=== PATIENT | female | born 1940 | race Caucasian/White ===

== ENCOUNTER → 2016-10-20 | Outpatient (CLI) | payer MEDICARE, OTHER ==
[2016-10-20 15:27] LABS: BASO % 0 % (0-3); EOS % 0 % (0-3); HEMATOCRIT 39.1 % (36.0-47.0); HEMOGLOBIN 13.4 g/dL (12.0-15.5); LYMPH # 1.1 x10^3/uL (1.0-4.8); LYMPH % 25 % (24-48); MEAN CORPUSCULAR HEMOGLOBIN 34 pg (25-35); MEAN CORPUSCULAR HGB CONC 34 g/dL (31-37); MEAN CORPUSCULAR VOLUME 98 fL (79-100); MONO # 0.3 x10^3/uL (0.0-1.1); MONO % 6 % (0-9); NEUT # 3.1 x10^3uL (1.8-7.7); NEUT % 69 % (31-73); PLATELET COUNT 162 x10^3/uL (140-400); RED BLOOD COUNT 3.98 x10^6/uL (3.50-5.40); RED CELL DISTRIBUTION WIDTH 13.7 % (11.5-14.5); WHITE BLOOD COUNT 4.5 x10^3/uL (4.0-11.0)
[2016-10-20 15:33] LABS: ALBUMIN 3.6 g/dL (3.4-5.0); ALBUMIN/GLOBULIN RATIO 0.9 (1.0-1.7); CALCIUM 9.3 mg/dL (8.5-10.1); CREATININE 1.3 mg/dL (0.6-1.0); GFR 39.7; MAGNESIUM 1.8 mg/dL (1.8-2.4); PHOSPHORUS 3.8 mg/dL (2.6-4.7); POTASSIUM 4.7 mmol/L (3.5-5.1); TOTAL BILIRUBIN 0.8 mg/dL (0.2-1.0); TOTAL PROTEIN 7.6 g/dL (6.4-8.2); URIC ACID 5.4 mg/dL (2.6-6.0)
[2016-10-21 05:10] LABS: UR CREATININE RD 113.9 mg/dL (Not Estab.)
== END | disposition home or self-care (01) ==
LOC: LAB 14:22
PROVIDERS: ATTEND Internal Medicine Nephrology
DX: N18.9 Chronic kidney disease, unspecified (principal); Z68.34 Body mass index [BMI] 34.0-34.9, adult
CPT/HCPCS: 36415; 80053; 82570; 83735; 84100; 84156; 84550; 85027

== ENCOUNTER → 2017-04-23 | Outpatient (CLI) | payer MEDICARE, OTHER ==
[2017-04-23 12:19] LABS: BASO % 0 % (0-3); EOS % 0 % (0-3); HEMOGLOBIN 14.1 g/dL (12.0-15.5); LYMPH % 21 % (24-48); MEAN CORPUSCULAR HEMOGLOBIN 35 pg (25-35); MEAN CORPUSCULAR HGB CONC 35 g/dL (31-37); MEAN CORPUSCULAR VOLUME 98 fL (79-100); MONO # 0.3 x10^3/uL (0.0-1.1); MONO % 7 % (0-9); NEUT # 3.5 x10^3uL (1.8-7.7); NEUT % 72 % (31-73); PLATELET COUNT 213 x10^3/uL (140-400); RED BLOOD COUNT 4.07 x10^6/uL (3.50-5.40); WHITE BLOOD COUNT 4.8 x10^3/uL (4.0-11.0)
[2017-04-23 12:34] LABS: ALBUMIN 3.4 g/dL (3.4-5.0); ALBUMIN/GLOBULIN RATIO 0.8 (1.0-1.7); CALCIUM 9.2 mg/dL (8.5-10.1); CREATININE 1.4 mg/dL (0.6-1.0); GFR 36.5; MAGNESIUM 1.6 mg/dL (1.8-2.4); PHOSPHORUS 3.5 mg/dL (2.6-4.7); POTASSIUM 4.1 mmol/L (3.5-5.1); TOTAL BILIRUBIN 1.4 mg/dL (0.2-1.0); TOTAL PROTEIN 7.5 g/dL (6.4-8.2); URIC ACID 6.8 mg/dL (2.6-6.0)
[2017-04-24 05:12] LABS: CALCIUM PTH 9.2 mg/dL (8.7-10.3); CREATININE PTH 1.21 mg/dL (0.57-1.00); PTH INTACT 60 pg/mL (15-65)
== END | disposition home or self-care (01) ==
LOC: LAB 10:47
PROVIDERS: ATTEND Internal Medicine Nephrology
DX: I12.9 Hypertensive chronic kidney disease with stage 1 through stage 4 chronic kidney disease, or unspecified chronic kidney disease (principal); N18.3 Chronic kidney disease, stage 3 (moderate); E11.22 Type 2 diabetes mellitus with diabetic chronic kidney disease; E11.21 Type 2 diabetes mellitus with diabetic nephropathy; Z68.35 Body mass index [BMI] 35.0-35.9, adult
CPT/HCPCS: 36415; 80053; 83735; 83970; 84100; 84550; 85025

== ENCOUNTER → 2017-08-13 | Outpatient (CLI) | payer OTHER ==
[2017-08-13 13:47] LABS: ALBUMIN 3.2 g/dL (3.4-5.0); CALCIUM 9.3 mg/dL (8.5-10.1); CREATININE 1.2 mg/dL (0.6-1.0); GFR 43.4; MAGNESIUM 1.7 mg/dL (1.8-2.4); PHOSPHORUS 3.6 mg/dL (2.6-4.7); POTASSIUM 4.2 mmol/L (3.5-5.1)
[2017-08-13 13:48] LABS: BASO % 0 % (0-3); EOS % 0 % (0-3); HEMOGLOBIN 13.2 g/dL (12.0-15.5); LYMPH % 24 % (24-48); MEAN CORPUSCULAR HEMOGLOBIN 33 pg (25-35); MEAN CORPUSCULAR HGB CONC 35 g/dL (31-37); MEAN CORPUSCULAR VOLUME 95 fL (79-100); MONO # 0.2 x10^3/uL (0.0-1.1); MONO % 5 % (0-9); NEUT # 2.9 x10^3uL (1.8-7.7); NEUT % 71 % (31-73); PLATELET COUNT 149 x10^3/uL (140-400); RED CELL DISTRIBUTION WIDTH 13.7 % (11.5-14.5); WHITE BLOOD COUNT 4.1 x10^3/uL (4.0-11.0)
[2017-08-14 14:12] LABS: CALCIUM PTH 9.4 mg/dL (8.7-10.3); CREATININE PTH 1.05 mg/dL (0.57-1.00); PTH INTACT 38 pg/mL (15-65)
== END | disposition home or self-care (01) ==
LOC: LAB 10:25
PROVIDERS: ATTEND Nurse Practitioner Family
DX: I12.9 Hypertensive chronic kidney disease with stage 1 through stage 4 chronic kidney disease, or unspecified chronic kidney disease (principal); E11.21 Type 2 diabetes mellitus with diabetic nephropathy; N18.3 Chronic kidney disease, stage 3 (moderate); Z68.35 Body mass index [BMI] 35.0-35.9, adult
CPT/HCPCS: 36415; 80069; 83735; 83970; 85025

== ENCOUNTER 2017-08-27 19:07 | Inpatient (IN) | payer OTHER ==
[~2017-08-27] VITALS: Ht 157.5 cm; Wt 82.6 kg
--- NOTE | 2017-08-27 19:46 | EKG ---
[address] [address] Test Date: 2017-08-27 Test Time: 19:39:05 Pat Name: MATILDE CHRISTENSEN Department: Room: Gender: F Veterinary Physiologist: ASHLEY : 1940 Requested By: Evelyne ROSARIO Order Number: [id number] Reading MD: David Coulter Measurements Intervals [place] Rate: 102 P: 52 WA: 180 QRS: 4 QRSD: 78 T: 26 QT: 392 QTc: 516 Interpretive Statements SINUS TACHYCARDIA Electronically Signed On 09-03-2017 14:47:37 CDT by David Coulter
[2017-08-27 20:00] LABS: BASO % 0 % (0-3); EOS % 0 % (0-3); HEMATOCRIT 37.7 % (36.0-47.0); HEMOGLOBIN 13.2 g/dL (12.0-15.5); LYMPH % 19 % (24-48); MEAN CORPUSCULAR HEMOGLOBIN 33 pg (25-35); MEAN CORPUSCULAR HGB CONC 35 g/dL (31-37); MEAN CORPUSCULAR VOLUME 94 fL (79-100); MONO # 0.2 x10^3/uL (0.0-1.1); MONO % 5 % (0-9); NEUT % 77 % (31-73); PLATELET COUNT 176 x10^3/uL (140-400); RED BLOOD COUNT 4.01 x10^6/uL (3.50-5.40); RED CELL DISTRIBUTION WIDTH 13.4 % (11.5-14.5); WHITE BLOOD COUNT 5.2 x10^3/uL (4.0-11.0)
[2017-08-27 20:16] LABS: ALBUMIN 3.3 g/dL (3.4-5.0); ALBUMIN/GLOBULIN RATIO 0.8 (1.0-1.7); CREATININE 1.1 mg/dL (0.6-1.0); MAGNESIUM 1.7 mg/dL (1.8-2.4); POTASSIUM 3.9 mmol/L (3.5-5.1); TOTAL BILIRUBIN 0.7 mg/dL (0.2-1.0); TOTAL PROTEIN 7.5 g/dL (6.4-8.2)
--- NOTE | 2017-08-27 20:24 | RAD ---
CT scan of the head without contrast August 27, 2017 Clinical History: Fall with head trauma. Altered mental status. Technique: Unenhanced, contiguous, 5 mm axial sections were obtained through the head. One or more of the following individualized dose reduction techniques were utilized for this study: 1. Automated exposure control. 2. Adjustment of the mA and/or kV according to patient size. 3. Use of iterative reconstruction technique. Findings: No previous imaging studies are available for comparison. Images from the study are degraded by patient motion. There is generalized parenchymal atrophy. Areas of decreased attenuation are seen within the periventricular and subcortical white matter of both cerebral hemispheres consistent with areas of small vessel ischemic disease. No acute parenchymal abnormality is seen. No extra-axial fluid collection is noted. No skull fracture is seen. Impression: No acute intracranial abnormality is seen. CT scan of the cervical spine without contrast August 27, 2017 Clinical history: Neck pain post fall. Technique: Unenhanced, contiguous, 0.625 mm axial sections were obtained through the cervical spine. Axial, coronal and sagittal reconstructed images were obtained. One or more of the following individualized dose reduction techniques were utilized for this study: 1. Automated exposure control. 2. Adjustment of the mA and/or kV according to patient size. 3. Use of iterative reconstruction technique. Findings: Sagittal and coronal reconstructed images demonstrate mild lateral curvature of the cervical spine, convex to the right. There is mild straightening of the normal cervical lordosis. Degenerative changes are seen involving the cervical disc spaces consisting of disc space narrowing, vertebral endplate sclerosis and mild to moderate anterior and posterior vertebral body osteophyte formation are seen throughout the cervical disc spaces. No fracture or subluxation cervical vertebrae is seen. Degenerative changes are seen involving the uncovertebral and facet joints throughout the cervical disc spaces. Moderate atherosclerotic calcification is seen in the region of the carotid bifurcations. Impression: No fracture or subluxation of the cervical vertebra is identified. Electronically signed by: Jameson Haines MD (08/27/2017 8:21 PM) [facility]
[2017-08-27] MEDS ORDERED: IV NORMAL SALINE 500ML 500 ML IV ONE (20:45)
[2017-08-27 21:41] LABS: BILIRUBIN,URINE NEG (NEG); CLARITY,URINE CLEAR; COLOR,URINE YELLOW; GLUCOSE,URINE NEG (NEG)
[2017-08-27 21:42] LABS: AMORPHOUS SEDIMENT,UR PRESENT /HPF; BACTERIA,URINE 0 /HPF (0-FEW); NITRITE,URINE NEG (NEG); RBC,URINE RARE /HPF (0-2); SQUAMOUS EPITHELIAL CELL,UR OCC /LPF; UROBILINOGEN,URINE 0.2 mg/dL (0.2 mg/dL); WBC,URINE OCC /HPF (0-4)
[2017-08-27] MEDS ORDERED: MIDAZOLAM HCL PF 5 MG/5 ML VIAL. IV ONE (22:00)
[2017-08-27] MEDS ORDERED: MORPHINE SULFATE 4 MG/ML DISP.SYRIN. ONE (22:03)
[2017-08-27] MEDS: MORPHINE SULFATE 4 MG/ML DISP.SYRIN. IV ONE ×2 (22:04→22:15)
--- NOTE | 2017-08-27 22:59 | PHYS DOC ---
Adult General Chief Complaint Chief Complaint: MECHANICAL FALL HPI HPI Patient is a 75-year-old female who is brought in by her secondary to concerns of increased confusion and agitation. Patient also sustained a fall today. Patient has been able to ambulate after the fall. No recent illnesses, no history of fevers or sick contacts or rashes. No recent changes in medication. Both the patient and are poor historians. History, ROS limited secondary to dementia and clinical condition Review of Systems Review of Systems ROS limited secondary to dementia. Neuro: increased confusion Psych: increased agitation All other systems were reviewed and found to be within normal limits, except as documented in this note. Current Medications Current Medications Current Medications Medications (Trade) Dose Ordered Sig/Leola Start Time Stop Time Status Last Admin Dose Admin Midazolam HCl (Versed) 2 mg 1X ONCE 08/27/17 22:00 08/27/17 22:01 DC 08/27/17 21:50 2 MG Morphine Sulfate (Morphine 4mg Syringe) 4 mg STK-MED ONCE 08/27/17 22:03 08/27/17 22:04 DC Sodium Chloride 500 ml @ 0 mls/hr 1X ONCE 08/27/17 20:45 08/27/17 20:49 DC 08/27/17 20:45 0 MLS/HR Allergies Allergies Allergies Coded Allergies Type Severity Reaction Last Updated Verified No Known Drug Allergies 08/27/17 No Physical Exam Physical Exam Constitutional: Well developed, well nourished, mild distress, non-toxic appearance. [] HENT: Normocephalic, atraumatic, bilateral external ears normal, oropharynx dry , no oral exudates, nose normal. [] Eyes:EOMI, conjunctiva normal, no discharge. [] Neck: Normal range of motion, no tenderness, supple, no stridor. Trachea midline. No LAD, no meningeal signs Cardiovascular: Equal pulses, normal perfusion Lungs & Thorax: Bilateral breath sounds clear to auscultation, no tachypnea Abdomen: Bowel sounds normal, soft, no tenderness, no masses, no pulsatile masses. [] Skin: Warm, dry, no erythema, no rash. [] Back: No tenderness, no CVA tenderness. No midline tenderness to palpation, no step-offs Extremities: No tenderness, no DVT, ROM intact, no edema. [] Neurologic: Alert , normal motor function, no focal deficits noted. [] Psychologic: Anxious, agitated. [] Current Patient Data Lab Results Laboratory Tests Test 08/27/17 19:20 08/27/17 21:09 White Blood Count 5.2 x10^3/uL (4.0-11.0) Red Blood Count 4.01 x10^6/uL (3.50-5.40) Hemoglobin 13.2 g/dL (12.0-15.5) Hematocrit 37.7 % (36.0-47.0) Mean Corpuscular Volume 94 fL (79-100) Mean Corpuscular Hemoglobin 33 pg (25-35) Mean Corpuscular Hemoglobin Concent 35 g/dL (31-37) Red Cell Distribution Width 13.4 % (11.5-14.5) Platelet Count 176 x10^3/uL (140-400) Neutrophils (%) (Auto) 77 % (31-73) H Lymphocytes (%) (Auto) 19 % (24-48) L Monocytes (%) (Auto) 5 % (0-9) Eosinophils (%) (Auto) 0 % (0-3) Basophils (%) (Auto) 0 % (0-3) Neutrophils # (Auto) 4.0 x10^3uL (1.8-7.7) Lymphocytes # (Auto) 1.0 x10^3/uL (1.0-4.8) Monocytes # (Auto) 0.2 x10^3/uL (0.0-1.1) Eosinophils # (Auto) 0.0 x10^3/uL (0.0-0.7) Basophils # (Auto) 0.0 x10^3/uL (0.0-0.2) Sodium Level 140 mmol/L (136-145) Potassium Level 3.9 mmol/L (3.5-5.1) Chloride Level 104 mmol/L (98-107) Carbon Dioxide Level 25 mmol/L (21-32) Anion Gap 11 (6-14) Blood Urea Nitrogen 12 mg/dL (7-20) Creatinine 1.1 mg/dL (0.6-1.0) H Estimated GFR (Cockcroft-Gault) 48.0 BUN/Creatinine Ratio 11 (6-20) Glucose Level 116 mg/dL (70-99) H Calcium Level 9.0 mg/dL (8.5-10.1) Magnesium Level 1.7 mg/dL (1.8-2.4) L Total Bilirubin 0.7 mg/dL (0.2-1.0) Aspartate Amino Transferase (AST) 22 U/L (15-37) Alanine Aminotransferase (ALT) 13 U/L (14-59) L Alkaline Phosphatase 151 U/L (46-116) H VX-Psi-X-Type Natriuretic Peptide 672 pg/mL (0-449) H Total Protein 7.5 g/dL (6.4-8.2) Albumin 3.3 g/dL (3.4-5.0) L Albumin/Globulin Ratio 0.8 (1.0-1.7) L Lipase 240 U/L (73-393) Urine Collection Type U cath Urine Color Yellow Urine Clarity Clear Urine pH 5.0 Urine Specific [place] 1.020 Urine Protein 30 mg/dl (NEG-TRACE) Urine Glucose (UA) Neg mg/dL (NEG) Urine Ketones (Stick) Neg mg/dL (NEG) Urine Blood Small (NEG) Urine Nitrite Neg (NEG) Urine Bilirubin Neg (NEG) Urine Urobilinogen Dipstick 0.2 mg/dL (0.2 mg/dL) Urine Leukocyte Esterase Neg (NEG) Urine RBC Rare /HPF (0-2) Urine WBC Occ /HPF (0-4) Urine Squamous Epithelial Cells Occ /LPF Urine Amorphous Sediment Present /HPF Urine Bacteria 0 /HPF (0-FEW) EKG EKG 1944 102, sinus tachycardia, no STEMI[] Radiology/Procedures Radiology/Procedures Preliminary chest x-ray read no acute findings[] Head CT and C-spine CT no acute findings Course & Med Decision Making Course & Med Decision Making Pertinent Labs and Imaging studies reviewed. (See chart for details) 2300 patient has been discussed with PCP who agrees with the admission secondary to confusion, agitation, dementia. They will arrange for a psychiatric consult while inpatient. [] Dragon Disclaimer Dragon Disclaimer This electronic medical record was generated, in whole or in part, using a voice recognition dictation system. Departure Departure: Impression: Primary Impression: Confusion Additional Impressions: Agitation Dementia Admitting Physician: Blade Hansen Condition: STABLE Referrals: BLADE HANSEN MD (PCP) Problem Qualifiers Evelyne ROSARIO MD Aug 27, 2017 22:59
[2017-08-27] MEDS ORDERED: ONDANSETRON PF 4 MG/2 ML VIAL. IV PRN (23:45)
[2017-08-27] MEDS ORDERED: MORPHINE SULFATE 4 MG/ML DISP.SYRIN. IV PRN (23:45)
[2017-08-27] MEDS ORDERED: ACETAMINOPHEN 325 MG TABLET PO PRN (23:45)
[2017-08-28] VITALS (8 sets, daily range): BP systolic 111–154; BP diastolic 56–88
[2017-08-28] MEDS ORDERED: ZOLP12.54 PO (02:42)
[2017-08-28] MEDS ORDERED: GABA300C8 PO (02:42)
[2017-08-28] MEDS ORDERED: ROPI1TAB2 PO (02:42)
[2017-08-28] MEDS ORDERED: POTA10TA5 PO (02:42)
[2017-08-28] MEDS ORDERED: MORP30TA3 PO (02:42)
[2017-08-28 02:48] LABS: BASO % 0 % (0-3); EOS % 0 % (0-3); HEMATOCRIT 32.3 % (36.0-47.0); HEMOGLOBIN 11.4 g/dL (12.0-15.5); LYMPH # 1.1 x10^3/uL (1.0-4.8); LYMPH % 29 % (24-48); MEAN CORPUSCULAR HEMOGLOBIN 33 pg (25-35); MEAN CORPUSCULAR HGB CONC 35 g/dL (31-37); MEAN CORPUSCULAR VOLUME 94 fL (79-100); MONO # 0.3 x10^3/uL (0.0-1.1); MONO % 7 % (0-9); NEUT # 2.5 x10^3uL (1.8-7.7); NEUT % 64 % (31-73); PLATELET COUNT 128 x10^3/uL (140-400); RED BLOOD COUNT 3.45 x10^6/uL (3.50-5.40); RED CELL DISTRIBUTION WIDTH 13.6 % (11.5-14.5); WHITE BLOOD COUNT 3.9 x10^3/uL (4.0-11.0)
[2017-08-28 03:06] LABS: CALCIUM 8.2 mg/dL (8.5-10.1); GFR 53.6
[2017-08-28] MEDS: HEPARIN PF for SUB-Q USE 5,000 UNIT/0.5 ML VIAL. SQ SCH ×3 (06:46→20:48)
--- NOTE | 2017-08-28 08:35 | RAD ---
AP chest. History: Fall today AP view was taken of the chest. Patient's had previous bilateral shoulder surgery. There is absence of space between the left humerus and acromion suggesting left rotator cuff degeneration. Lungs are free of infiltrates. Heart is normal in size. There is no effusion. Impression: 1. No acute chest disease.
[2017-08-28] MEDS: DULoxetine HCL 20 MG CAPSULE.DR PO SCH (11:26)
[2017-08-28] MEDS: traMADol 50 MG TABLET PO PRN ×2 (11:26→19:34)
[2017-08-28] MEDS ORDERED: IOHEXOL 300 MG/ML 75 ML VIAL. IV ONE (12:00)
--- NOTE | 2017-08-28 12:30 | HP ---
ADMIT DATE: 08/27/2017 HISTORY OF PRESENT ILLNESS: A 77-year-old female came in through the Emergency Room last night. She was in severe pain with her lower back. She has been treated for this for some time. The patient, however, while she was on the Emergency Room fell out of her wheelchair, hitting her head, but the family notes that the patient for the last several months has been having problems with hallucinations, noting people in the house that are not there, talking and causing the disruption. The patient does not have any insight into these; she is convinced that these people were in the house with her when necessarily there was no one else there. The patient has a very poor memory. She has been seen at the memory clinic down at . We are trying to get records there and to evaluate it, but apparently they were only able to give her some types of medication and make further suggestions. The patient does note that she is an extremely poor historian. She was unaware of the year that we are in and she was only able to name 3 animals within a minute and has a great deal of confusion along with her hallucinations, visual hallucinations, no auditory hallucinations were noted. PAST MEDICAL HISTORY: As noted, she has had a history of diabetes, but her blood sugars look very good now, hyperlipidemia, mood disorder ____ restless leg syndrome, chronic lower back pain, edema of lower extremities. ALLERGIES: She has no known allergies. MEDICATIONS: Include gabapentin 300 mg 3 times a day, potassium chloride 10 mEq daily, ropinirole hydrochloride 1 mg at bedtime, MS Contin 30 mg 1 p.o. b.i.d., Ambien CR 12.5 mg tablet extended release orally and the like. PAST SURGICAL HISTORY: She has had 2 pregnancies, hysterectomy, oophorectomy, cholecystectomy, right shoulder surgery, back surgery. FAMILY HISTORY: The patient's mother of heart disease. Otherwise, father lived to be in his elderly age. SOCIAL HISTORY: The patient is a former smoker a [id number] history, although quit more than 10 years ago. Occasional alcohol use. Retired. REVIEW OF SYSTEMS: The patient denies any headaches, visual change, blurred vision, double vision. Denies chest pain, shortness of breath, abdominal pain. He does have constipation. Does have problems with insomnia, may be anywhere from 4-6 hours of sleep at night, has trouble falling asleep, chronic lower back pain and leg pain. PHYSICAL EXAMINATION: GENERAL: The patient otherwise on exam is a very pleasant white female looking stated age. VITAL SIGNS: Blood pressure 120/86, respiratory rate 20, pulse 95. She is afebrile, good oxygen saturation. HEENT: The patient's head was atraumatic, normocephalic. Eyes: PERRLA without jaundice. Mouth and throat: Normal. NECK: Supple, without JVD, carotid, or thyromegaly. LUNGS: Diminished, but clear throughout. CARDIOVASCULAR: Regular sinus rhythm, S1, S2, without murmur, rub, thrill, or extra heart sounds. ABDOMEN: The patient's abdomen was soft, nontender, no rebounding, no guarding. Positive bowel sounds, no hepatosplenomegaly was noted. EXTREMITIES: No clubbing, cyanosis, nor edema. NEUROLOGIC: She was alert. She was oriented to place, but confused as to the date and year. The patient otherwise moving all extremities well within reason. Normal sensory. It is noted she seems to understand. She has good verbal comprehension and articular enunciation of her words. She speaks in full sentences and is able to describe her feelings very accurately except for her delusions of people in her room otherwise, interesting enough, we get a CT scan of the head which showed some minor changes consistent with her age. Chest x-ray was unremarkable. LABORATORY DATA: Show slight anemia of 11.4, platelets slightly decreased at 128. Chemistries were basically unremarkable. Slight dehydration and then resolved. Blood sugar 95. Lactic acid good. Calcium slightly low, magnesium low, and cardiac enzymes negative. BNP slightly elevated at 672, although she does not describe any dyspnea. Albumin slightly low at 3.3. UA was unremarkable and coags elevated, probably from the fall, but we will get a CTA bilaterally, also with her history of smoking. IMPRESSION: Hallucinations, visual; generalized weakness, chronic pain of the lower back with sciatica, restless legs syndrome, insomnia, [id number] protein malnutrition, degenerative arthritis of the cervical spine, degenerative changes of the brain, microvascular disease, dementia, short term memory deficit. Per the results thrombocytopenia as well as mild anemia. PLAN: We will go ahead with PT, OT, try to adjust her pain medications, give her some laxatives to prevent constipation. X-ray of the back. Have Dr. Pleitez of Psychiatry review the patient. see if they can help her with her hallucinations as well as her memory loss and make further evaluation on her as indicated. NOHEMI SANTANA MD DR: BRISA/idalia JOB#: [id number] / [id number]
--- NOTE | 2017-08-28 13:21 | RAD ---
Lumbar spine 3 views. History: Lower back pain 3 views were taken of the lumbar spine. There is transitional anatomy with 6 lumbar type vertebra or a transitional S1. There are degenerative disc disease at all levels in the lumbar spine. There is spondylolisthesis between L5 and the transitional vertebral. There is been a previous lower lumbar fusion fusion with pedicle screws and rods. There is been a previous laminectomy. There is mild scoliosis convex the left. There is hypertrophic change. Comparison is made with a CT from November 2015. There is worsening discs space narrowing at L2-3 and L3-4 compared to the old study. The previous fusion appears unchanged. Impression: 1. Previous laminectomy and fusion 2. Worsening degenerative disc disease.
--- NOTE | 2017-08-28 13:26 | RAD ---
CT arteriogram of the chest. History: Short of breath, positive d-dimer CT arteriogram was done using 70 mL Omnipaque 300 contrast. Sagittal and coronal MIP reconstructed images were obtained and reviewed. There is no mediastinal adenopathy or pleural effusion. Visualized portions of liver and spleen are normal. Adrenal glands are normal. There is hypertrophic change in the thoracic spine. Lungs are free of infiltrates. There are calcified granulomas. The study is negative for evidence of a pulmonary embolus. There is hypertrophic change in the thoracic spine. Impression: 1. No infiltrates noted. 2. Negative for pulmonary embolus One or more of the following individualized dose reduction techniques were utilized for this examination: 1. Automated exposure control 2. Adjustment of the mA and/or kV according to patient size 3. Use of iterative reconstruction technique
--- NOTE | 2017-08-28 16:58 | PDOC ---
Exam Note: Peña Note: Please also refer to the separate dictated note~for this date of service dictated separately.~Patient seen individually. Discussed the patient with Nursing staff reviewed the chart.~Reviewed interim history and current functioning. Reviewed vital signs,~Labs/ Radiology~and current medications noted below. Continue current treatment with the changes noted in the dictated addendum note Assessment: Vital Signs: Vital Signs Date Time Temp Pulse Resp B/P (MAP) Pulse Ox O2 Delivery O2 Flow Rate FiO2 08/28/17 16:03 98.2 59 20 154/76 (102) 97 Room Air I&O Intake and Output 08/28/17 07:00 # Voids 1 Labs: Laboratory Tests Test 08/27/17 19:20 08/27/17 21:09 08/28/17 02:36 08/28/17 06:35 White Blood Count 5.2 x10^3/uL (4.0-11.0) 3.9 x10^3/uL (4.0-11.0) L Red Blood Count 4.01 x10^6/uL (3.50-5.40) 3.45 x10^6/uL (3.50-5.40) L Hemoglobin 13.2 g/dL (12.0-15.5) 11.4 g/dL (12.0-15.5) L Hematocrit 37.7 % (36.0-47.0) 32.3 % (36.0-47.0) L Mean Corpuscular Volume 94 fL (79-100) 94 fL (79-100) Mean Corpuscular Hemoglobin 33 pg (25-35) 33 pg (25-35) Mean Corpuscular Hemoglobin Concent 35 g/dL (31-37) 35 g/dL (31-37) Red Cell Distribution Width 13.4 % (11.5-14.5) 13.6 % (11.5-14.5) Platelet Count 176 x10^3/uL (140-400) 128 x10^3/uL (140-400) L Neutrophils (%) (Auto) 77 % (31-73) H 64 % (31-73) Lymphocytes (%) (Auto) 19 % (24-48) L 29 % (24-48) Monocytes (%) (Auto) 5 % (0-9) 7 % (0-9) Eosinophils (%) (Auto) 0 % (0-3) 0 % (0-3) Basophils (%) (Auto) 0 % (0-3) 0 % (0-3) Neutrophils # (Auto) 4.0 x10^3uL (1.8-7.7) 2.5 x10^3uL (1.8-7.7) Lymphocytes # (Auto) 1.0 x10^3/uL (1.0-4.8) 1.1 x10^3/uL (1.0-4.8) Monocytes # (Auto) 0.2 x10^3/uL (0.0-1.1) 0.3 x10^3/uL (0.0-1.1) Eosinophils # (Auto) 0.0 x10^3/uL (0.0-0.7) 0.0 x10^3/uL (0.0-0.7) Basophils # (Auto) 0.0 x10^3/uL (0.0-0.2) 0.0 x10^3/uL (0.0-0.2) Sodium Level 140 mmol/L (136-145) 140 mmol/L (136-145) Potassium Level 3.9 mmol/L (3.5-5.1) 4.0 mmol/L (3.5-5.1) Chloride Level 104 mmol/L (98-107) 108 mmol/L (98-107) H Carbon Dioxide Level 25 mmol/L (21-32) 24 mmol/L (21-32) Anion Gap 11 (6-14) 8 (6-14) Blood Urea Nitrogen 12 mg/dL (7-20) 12 mg/dL (7-20) Creatinine 1.1 mg/dL (0.6-1.0) H 1.0 mg/dL (0.6-1.0) Estimated GFR (Cockcroft-Gault) 48.0 53.6 BUN/Creatinine Ratio 11 (6-20) Glucose Level 116 mg/dL (70-99) H 95 mg/dL (70-99) Calcium Level 9.0 mg/dL (8.5-10.1) 8.2 mg/dL (8.5-10.1) L Magnesium Level 1.7 mg/dL (1.8-2.4) L Total Bilirubin 0.7 mg/dL (0.2-1.0) Aspartate Amino Transferase (AST) 22 U/L (15-37) Alanine Aminotransferase (ALT) 13 U/L (14-59) L Alkaline Phosphatase 151 U/L (46-116) H CY-Pls-M-Type Natriuretic Peptide 672 pg/mL (0-449) H Total Protein 7.5 g/dL (6.4-8.2) Albumin 3.3 g/dL (3.4-5.0) L Albumin/Globulin Ratio 0.8 (1.0-1.7) L Lipase 240 U/L (73-393) Thyroid Stimulating Hormone (TSH) 2.079 uIU/mL (0.358-3.740) Urine Collection Type U cath Urine Color Yellow Urine Clarity Clear Urine pH 5.0 Urine Specific [place] 1.020 Urine Protein 30 mg/dl (NEG-TRACE) Urine Glucose (UA) Neg mg/dL (NEG) Urine Ketones (Stick) Neg mg/dL (NEG) Urine Blood Small (NEG) Urine Nitrite Neg (NEG) Urine Bilirubin Neg (NEG) Urine Urobilinogen Dipstick 0.2 mg/dL (0.2 mg/dL) Urine Leukocyte Esterase Neg (NEG) Urine RBC Rare /HPF (0-2) Urine WBC Occ /HPF (0-4) Urine Squamous Epithelial Cells Occ /LPF Urine Amorphous Sediment Present /HPF Urine Bacteria 0 /HPF (0-FEW) Erythrocyte Sedimentation Rate 48 (0-25) H Troponin I Quantitative < 0.017 ng/mL (0-0.055) D-Dimer (Corin) 1.24 mg/L (0.00-0.50) H Lactic Acid Level 1.5 mmol/L (0.4-2.0) Test 08/28/17 06:52 Troponin I Quantitative < 0.017 ng/mL (0-0.055) Current Medications: Meds: Current Medications Sodium Chloride 500 ml @ 0 mls/hr 1X ONCE IV Last administered on 08/27/17at 20: 45; Start 08/27/17 at 20:45; Stop 08/27/17 at 20:49; Status DC Midazolam HCl (Versed) 2 mg 1X ONCE IV Last administered on 08/27/17at 21:50; Start 08/27/17 at 22:00; Stop 08/27/17 at 22:01; Status DC Morphine Sulfate (Morphine 4mg Syringe) 2 mg 1X ONCE IV Last administered on at 22:15; Start 08/27/17 at 22:15; Stop 08/27/17 at 22:16; Status DC Morphine Sulfate (Morphine 4mg Syringe) 4 mg STK-MED ONCE .ROUTE ; Start at 22:03; Stop 08/27/17 at 22:04; Status DC Ondansetron HCl (Zofran) 4 mg PRN Q4HRS PRN IV NAUSEA/VOMITING; Start 08/27/17 at 23:45; Stop 08/28/17 at 23:44 Morphine Sulfate (Morphine 4mg Syringe) 2 mg PRN Q4HRS PRN IV PAIN; Start at 23:45; Stop 08/28/17 at 23:44 Acetaminophen (Tylenol) 650 mg PRN Q4HRS PRN PO FEVER; Start 08/27/17 at 23:45; Stop 08/28/17 at 23:44 Heparin Sodium (Porcine) (Heparin Sq) 5,000 unit Q8HRS SQ Last administered on 08/28/17at 14:00; Start 08/28/17 at 06:00 Tramadol HCl (Ultram) 50 mg PRN Q6HRS PRN PO PAIN Last administered on at 11:26; Start 08/28/17 at 10:30 Docusate Sodium (Colace) 100 mg BID PO ; Start 08/28/17 at 21:00 Polyethylene Glycol (miraLAX) 17 gm DAILY PO ; Start 08/29/17 at 09:00 Duloxetine HCl (Cymbalta) 20 mg DAILY PO Last administered on 08/28/17at 11:26; Start 08/28/17 at 11:00 Iohexol (Omnipaque 300 Mg/ml) 75 ml 1X ONCE IV Last administered on 08/28/17at 12:37; Start 08/28/17 at 12:00; Stop 08/28/17 at 12:01; Status DC Active Scripts Active Reported Morphine Sulfate Er (Morphine Sulfate) 30 Mg Tablet.er 30 Mg PO BID Klor-Con 10 (Potassium Chloride) 10 Meq Tablet.er 10 Meq PO DAILY Gabapentin 300 Mg Capsule 300 Mg PO TID Ropinirole Hcl 1 Mg Tablet 1 Mg PO HS Zolpidem Tartrate Er (Zolpidem Tartrate) 12.5 Mg Tab.mphase 12.5 Mg PO PRN QHS PRN I have reviewed the current psychotropics carefully including drug interactions. Risk benefit ratio favors no change other than as noted in my dictated progress note. Diagnosis: Problems: (1) Anxiety disorder (2) Dementia in Alzheimer's disease with delusions (3) Dementia in Alzheimer's disease with depression (4) Dementia, vascular, with delusions (5) Impulse control disorder JUVENTINO LANE MD Aug 28, 2017 16:58
[2017-08-28] MEDS: DOCUSATE SODIUM 100 MG CAPSULE PO SCH (20:37)
[2017-08-28] MEDS: ZOLPIDEM 5 MG TABLET. PO PRN ×2 (20:48→22:31)
--- NOTE | 2017-08-29 00:14 | CONS ---
DATE OF CONSULTATION: 08/28/2017 PSYCHIATRIC CONSULTATION IDENTIFYING DATA: The patient is a 77-year-old female seen in bed [address], [address], [facility], referred by Dr. Hansen on account of increasing confusion, worsening symptoms of dementia over the past 1 year. Reportedly, the patient lives at home with her spouse and spouse was having a difficult time caring for her at home. The patient was seen individually evening of 08/28/2017. I met with the patient's as well and discussed with nursing staff, reviewed the chart. CHIEF COMPLAINT: "Yes, I am losing memory. No, I don't know the year or the city, the [facility]. This place is where you get tests and they give you the results. This is the doctor's office." The patient responded after I had met with her for a while and asked orientation questions. HISTORY OF PRESENT ILLNESS: The patient presented through the Emergency Room with severe pain in lower back. She has been treated for this for some time. However, while she was in the ER, she fell out of her wheelchair, hitting her head. Her family have noted over the past several months, she has been having problems with hallucinations, noting people in the house that are not there, talking and causing the disruption. The patient is fairly oblivious to all of this. She is convinced that there are people in the house with her even when there is no one there. She has significant short term memory deficits. She has been seen at memory clinic and records are being requested. No active suicidal or homicidal ideation. She has had some sleep disturbance as well. No clear symptoms of bipolar disorder. PAST PSYCHIATRIC HISTORY: As above. MEDICAL HISTORY: Positive for diabetes mellitus. Blood sugar is stable. Hyperlipidemia, restless leg syndrome, chronic low back pain, edema of lower extremities. DRUG ALLERGIES: Negative. CURRENT PSYCHOTROPICS: Neurontin 300 mg 3 times a day, potassium chloride 10 mEq daily, Requip 1 mg at bedtime, MS Contin 30 mg b.i.d., Ambien CR 12.5 mg extended release orally. Cymbalta 20 mg a day. SURGICAL HISTORY: Two pregnancies. She has 1 son and 1 daughter. History of hysterectomy, oophorectomy, cholecystectomy, right shoulder surgery, back surgery. FAMILY HISTORY: Mother of heart disease. SOCIAL HISTORY: The patient is a former smoker, [id number] history, quit 10 years ago. Occasional alcohol use. Retired, lives at home with her . The adult children ____ her care. She was reportedly driving until recently, still has a license, have informed her not to drive and informed the as well. MENTAL STATUS EXAMINATION: The patient was seen individually evening of 08/28/2017. She is oriented to herself, unaware of the year or the city, knew the state, unaware of the situation being a hospital, felt she was in her doctor's office, otherwise very pleasant. Speech is coherent, abstraction fair, computation impaired, language function intact. Attention span short. Minimizes hallucinations. No active suicidal or homicidal ideation. IMPRESSION: Major neurocognitive disorder, Alzheimer, vascular with delusion, behavioral disturbance; anxiety disorder, unspecified; impulse control disorder, unspecified. Rest as above. PLAN: We will request records from Neurology where she has had a full workup and we will make sure CT head, thyroid profile, serum folate, B12, have all been completed and I would expect that has all been done. Given the possibility of Alzheimer being part of her diagnoses, we will go ahead and start her on Exelon patch 4.6 mg a day even though it is unclear how much of the vascular dementia could be contributing to her memory deficits. We will maintain the Cymbalta. The MS Contin could contribute to some of her psychotic symptoms and we will minimize this and the Requip as well could contribute and she is currently not taking the Requip. After she is medically stable, if symptoms persist, we may consider transferring her [facility] the [facility]. Again, records have been requested from Neurology. Dr. Hansen, thank you for the opportunity to participate in your patient's care. We will follow with you. MAN Brina LANE MD DR: MAIDA/idalia JOB#: [id number] / [id number]
[2017-08-29] MEDS: traMADol 50 MG TABLET PO PRN ×2 (03:17→20:21)
[2017-08-29] MEDS ORDERED: MORPHINE SULFATE 2 MG/ML DISP.SYRIN. IV PRN (05:45)
[2017-08-29] MEDS ORDERED: MORPHINE SULFATE 4 MG/ML DISP.SYRIN. ONE (05:46)
[2017-08-29 05:47] VITALS: BP 134/63
[2017-08-29] MEDS: HEPARIN PF for SUB-Q USE 5,000 UNIT/0.5 ML VIAL. SQ SCH ×3 (05:59→21:32)
[2017-08-29] MEDS ORDERED: MORPHINE SULFATE 4 MG/ML DISP.SYRIN. IV PRN (06:33)
[2017-08-29] MEDS ORDERED: rOPINIRole 1 MG TABLET. PO ONE (08:45)
[2017-08-29] MEDS ORDERED: ZOLPIDEM 5 MG TABLET. PO PRN (08:45)
[2017-08-29] MEDS: DULoxetine HCL 20 MG CAPSULE.DR PO SCH (08:47)
[2017-08-29] MEDS: GABAPENTIN 300 MG CAPSULE. PO SCH ×2 (08:47→13:59)
[2017-08-29] MEDS: DOCUSATE SODIUM 100 MG CAPSULE PO SCH ×2 (08:47→19:51)
[2017-08-29] MEDS: POLYETHYLENE GLYCOL 3350 17 GM PACKET. PO SCH (08:51)
[2017-08-29] MEDS: POTASSIUM CHLORIDE 10 MEQ TABLET.ER. PO SCH (08:53)
[2017-08-29] MEDS: RIVASTIGMINE 4.6MG PATCH. TD SCH (08:53)
[2017-08-29 14:07] VITALS: BP 125/64
[2017-08-29] MEDS ORDERED: GABA600T2 PO (16:07)
[2017-08-29] MEDS ORDERED: ROPI0.5T PO (16:07)
[2017-08-29] MEDS ORDERED: CLON0.5T PO (16:08)
[2017-08-29] MEDS ORDERED: RIVA1PAT22 TP (16:11)
[2017-08-29] MEDS ORDERED: DULO20CA50 PO (16:11)
--- NOTE | 2017-08-29 18:24 | PDOC ---
Exam Note: Peña Note: Please also refer to the separate dictated note~for this date of service dictated separately.~Patient seen individually. Discussed the patient with Nursing staff reviewed the chart.~Reviewed interim history and current functioning. Reviewed vital signs,~Labs/ Radiology~and current medications noted below. Continue current treatment with the changes noted in the dictated addendum note Assessment: Vital Signs: Vital Signs Date Time Temp Pulse Resp B/P (MAP) Pulse Ox O2 Delivery O2 Flow Rate FiO2 08/29/17 14:07 97.4 64 18 125/64 (84) 98 Room Air I&O Intake and Output 08/29/17 07:00 Intake Total 640 ml Balance 640 ml Intake Oral 640 ml # Voids 10 # Bowel Movements 4 Current Medications: Meds: Current Medications Sodium Chloride 500 ml @ 0 mls/hr 1X ONCE IV Last administered on 08/27/17at 20: 45; Start 08/27/17 at 20:45; Stop 08/27/17 at 20:49; Status DC Midazolam HCl (Versed) 2 mg 1X ONCE IV Last administered on 08/27/17at 21:50; Start 08/27/17 at 22:00; Stop 08/27/17 at 22:01; Status DC Morphine Sulfate (Morphine 4mg Syringe) 2 mg 1X ONCE IV Last administered on at 22:15; Start 08/27/17 at 22:15; Stop 08/27/17 at 22:16; Status DC Morphine Sulfate (Morphine 4mg Syringe) 4 mg STK-MED ONCE .ROUTE ; Start at 22:03; Stop 08/27/17 at 22:04; Status DC Ondansetron HCl (Zofran) 4 mg PRN Q4HRS PRN IV NAUSEA/VOMITING; Start 08/27/17 at 23:45; Stop 08/28/17 at 23:44; Status DC Morphine Sulfate (Morphine 4mg Syringe) 2 mg PRN Q4HRS PRN IV PAIN; Start at 23:45; Stop 08/28/17 at 23:44; Status DC Acetaminophen (Tylenol) 650 mg PRN Q4HRS PRN PO FEVER Last administered on 08/28at 22:31; Start 08/27/17 at 23:45; Stop 08/28/17 at 23:44; Status DC Heparin Sodium (Porcine) (Heparin Sq) 5,000 unit Q8HRS SQ Last administered on 08/29/17at 14:00; Start 08/28/17 at 06:00 Tramadol HCl (Ultram) 50 mg PRN Q6HRS PRN PO PAIN Last administered on at 03:17; Start 08/28/17 at 10:30 Docusate Sodium (Colace) 100 mg BID PO Last administered on 08/29/17at 08:47; Start 08/28/17 at 21:00 Polyethylene Glycol (miraLAX) 17 gm DAILY PO ; Start 08/29/17 at 09:00 Duloxetine HCl (Cymbalta) 20 mg DAILY PO Last administered on 08/29/17at 08:47; Start 08/28/17 at 11:00 Iohexol (Omnipaque 300 Mg/ml) 75 ml 1X ONCE IV Last administered on 08/28/17at 12:37; Start 08/28/17 at 12:00; Stop 08/28/17 at 12:01; Status DC Rivastigmine (Exelon) 1 patch DAILY TD Last administered on 08/29/17at 08:53; Start 08/29/17 at 09:00 Zolpidem Tartrate (Ambien) 5 mg PRN QHS PRN PO INSOMNIA, MAY REPEAT IN 1HR Last administered on 08/28/17at 22:31; Start 08/28/17 at 20:30 Olanzapine (ZyPREXA ZYDIS) 5 mg 1X ONCE PO Last administered on 08/29/17at 03: 45; Start 08/29/17 at 03:45; Stop 08/29/17 at 03:46; Status DC Morphine Sulfate (Morphine 2mg Syringe) 2 mg PRN Q4HRS PRN IV PAIN Last administered on 08/29/17at 06:02; Start 08/29/17 at 05:45; Stop 08/29/17 at 06:33 ; Status DC Morphine Sulfate (Morphine 4mg Syringe) 4 mg STK-MED ONCE .ROUTE ; Start at 05:46; Stop 08/29/17 at 05:47; Status DC Morphine Sulfate (Morphine 4mg Syringe) 2 mg PRN Q4HRS PRN IV PAIN; Start 08/29 at 06:33 Gabapentin (Neurontin) 300 mg TID PO Last administered on 08/29/17at 13:59; Start 08/29/17 at 09:00 Ropinirole HCl (Requip) 1 mg HS PO ; Start 08/29/17 at 21:00; Stop 08/29/17 at 21:00; Status DC Potassium Chloride (Klor-Con) 10 meq DAILYWBKFT PO Last administered on at 08:53; Start 08/29/17 at 09:00 Zolpidem Tartrate (Ambien) 10 mg PRN QHS PRN PO INSOMNIA; Start 08/29/17 at 08: 45 Ropinirole HCl (Requip) 1 mg 1X ONCE PO Last administered on 08/29/17at 08:47; Start 08/29/17 at 08:45; Stop 08/29/17 at 08:46; Status DC Ropinirole HCl (Requip) 0.5 mg BID PO ; Start 08/29/17 at 21:00 Gabapentin (Neurontin) 600 mg QHS PO ; Start 08/29/17 at 21:00 Clonazepam (KlonoPIN) 0.5 mg HS PO ; Start 08/29/17 at 21:00 Active Scripts Active Reported Cymbalta (Duloxetine Hcl) 20 Mg Capsule.dr 1 Cap PO DAILY EXELON 4.6mg/24hr (Rivastigmine) 1 Each Patch.td24 1 Patch TP DAILY Klonopin (Clonazepam) 0.5 Mg Tablet 1 Tab PO HS Requip (Ropinirole Hcl) 0.5 Mg Tablet 1 Tab PO BID Gabapentin 600 Mg Tablet 600 Mg PO HS Morphine Sulfate Er (Morphine Sulfate) 30 Mg Tablet.er 30 Mg PO BID Klor-Con 10 (Potassium Chloride) 10 Meq Tablet.er 10 Meq PO DAILY Gabapentin 300 Mg Capsule 300 Mg PO BID Ropinirole Hcl 1 Mg Tablet 1 Mg PO HS Zolpidem Tartrate Er (Zolpidem Tartrate) 12.5 Mg Tab.mphase 12.5 Mg PO PRN QHS PRN I have reviewed the current psychotropics carefully including drug interactions. Risk benefit ratio favors no change other than as noted in my dictated progress note. Diagnosis: Problems: (1) Dementia in Alzheimer's disease with delusions (2) Dementia in Alzheimer's disease with depression (3) Dementia, vascular, with delusions (4) Impulse control disorder (5) Anxiety disorder JUVENTINO LANE MD Aug 29, 2017 18:24
[2017-08-29] MEDS: rOPINIRole 0.5 MG TABLET. PO SCH (19:52)
[2017-08-29 19:53] VITALS: BP 112/73
[2017-08-29] MEDS ORDERED: MIRTAZAPINE 7.5 MG TABLET. PO SCH (20:00)
--- NOTE | 2017-08-29 20:28 | PN ---
DATE: 08/29/2017 SUBJECTIVE: A 77-year-old female in with a change in mental status as well as having some visual hallucinations. The patient seems to be resting fairly comfortably, making fairly good progress. Overall, very sleepy today having difficulty at night. Dr. Pleitez, psychiatrist to see the patient. Otherwise, the patient at this time alert, but confused. OBJECTIVE: VITAL SIGNS: Blood pressure 125/64, respiration 18, pulse 64, afebrile. LUNGS: Diminished. CARDIOVASCULAR: Stable. ABDOMEN: Soft, nontender. We will go ahead and continue to adjust her medications. 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 NEUROLOGIC: The patient's degenerative changes of the brain, microvascular disease, dementia, short-term memory loss, thrombocytopenia, and mild anemia. PLAN: Continue on present medication adjustment of medications. Make further evaluation on her as indicated. NOHEMI SANTANA MD DR: BRISA/idalia JOB#: [id number] / [id number]
[2017-08-29] MEDS ORDERED: rOPINIRole 1 MG TABLET. PO SCH (21:00)
[2017-08-29] MEDS ORDERED: clonazePAM 0.5 MG TABLET PO SCH (21:00)
[2017-08-29] MEDS ORDERED: GABAPENTIN 300 MG CAPSULE. PO SCH (21:00)
[2017-08-30] MEDS: HEPARIN PF for SUB-Q USE 5,000 UNIT/0.5 ML VIAL. SQ SCH (05:30)
[2017-08-30 05:45] VITALS: BP 112/75
[2017-08-30] MEDS ORDERED: GABAPENTIN 300 MG CAPSULE. PO SCH (09:00)
[2017-08-30] MEDS: POLYETHYLENE GLYCOL 3350 17 GM PACKET. PO SCH (09:00)
[2017-08-30] MEDS: DULoxetine HCL 20 MG CAPSULE.DR PO SCH (09:18)
[2017-08-30] MEDS: DOCUSATE SODIUM 100 MG CAPSULE PO SCH (09:18)
[2017-08-30] MEDS: rOPINIRole 0.5 MG TABLET. PO SCH (09:19)
[2017-08-30] MEDS: RIVASTIGMINE 4.6MG PATCH. TD SCH (09:19)
[2017-08-30] MEDS: POTASSIUM CHLORIDE 10 MEQ TABLET.ER. PO SCH (09:19)
[2017-08-30] MEDS ORDERED: MIRT7.5T8 PO (10:51)
[2017-08-30] MEDS ORDERED: POLY17PO5 PO (10:51)
[2017-08-30] MEDS ORDERED: TRAM50TA PO (10:51)
[2017-08-30] MEDS ORDERED: DOCU-109 PO (10:51)
--- NOTE | 2017-09-03 11:16 | DS ---
DATE OF DISCHARGE: 08/30/2017 HOSPITAL COURSE: A 77-year-old female, came in through the Emergency Room, apparently increased confusion, increased weakness over the last several months as well as some hallucinations where memory loss has been more severe. She has been to the [facility] at , but apparently they were unable to help her that much anyway. She was only able to name 3 animals in 1 minute. She has noted she saw people in the room that were not there, took her off some of her medications including the morphine that she uses for chronic back pain. X-rays were taken of the lumbar spine and showed previous laminectomy with fusion as well as worsening degenerative disk disease overall. While the patient made relatively good progress, she was seen by Dr. Pleitez, diagnosed with dementia and Alzheimer's disease with depression, chronic lower back pain, restless leg syndrome, severe anxiety, hallucinations, visual anemia of chronic disease, elevated sed rate, elevated D-dimer, mild protein malnutrition. The patient otherwise made relatively good progress, was somewhat less confused, less agitated by the time of her discharge. She was discharged to home in the care of her . She will be on a regular diet, decreased activity. Follow up with Dr. Pleitez and make further assessment on her as indicated. NOHEMI SANTANA MD DR: BRISA/idalia JOB#: [id number] / [id number]
== END 2017-08-30 11:39 | disposition home health service (06) | DRG 57 ==
LOC: ER 19:07 → 1 SOUTH 23:44
PROVIDERS: ADMIT Family Medicine; ATTEND Family Medicine
DX: G30.9 Alzheimer's disease, unspecified (principal); E44.0 Moderate protein-calorie malnutrition; D69.6 Thrombocytopenia, unspecified; D64.9 Anemia, unspecified; E11.9 Type 2 diabetes mellitus without complications; D63.8 Anemia in other chronic diseases classified elsewhere; F01.50 Vascular dementia, unspecified severity, without behavioral disturbance, psychotic disturbance, mood disturbance, and anxiety; E78.5 Hyperlipidemia, unspecified; M54.40 Lumbago with sciatica, unspecified side; W05.0XXA Fall from non-moving wheelchair, initial encounter; M47.812 Spondylosis without myelopathy or radiculopathy, cervical region; F63.9 Impulse disorder, unspecified; G25.81 Restless legs syndrome; F32.9 Major depressive disorder, single episode, unspecified; G47.00 Insomnia, unspecified; R41.3 Other amnesia; G47.9 Sleep disorder, unspecified; F41.9 Anxiety disorder, unspecified; F02.80 Dementia in other diseases classified elsewhere, unspecified severity, without behavioral disturbance, psychotic disturbance, mood disturbance, and anxiety; G89.29 Other chronic pain; Z82.49 Family history of ischemic heart disease and other diseases of the circulatory system; Z87.891 Personal history of nicotine dependence; Z90.49 Acquired absence of other specified parts of digestive tract; Z90.710 Acquired absence of both cervix and uterus; Z68.33 Body mass index [BMI] 33.0-33.9, adult; Z79.899 Other long term (current) drug therapy; Y93.89 Activity, other specified; Y92.238 Other place in hospital as the place of occurrence of the external cause; Y99.8 Other external cause status
CPT/HCPCS: 36415; 70450; 71045; 71275; 72100; 72125; 80048; 80053; 81001; 82607; 82746; 83036; 83540; 83550; 83605; 83690; 83735; 83880; 84443; 84484; 85025; 85379; 85651; 86593; 93005; 96361; 96374; 96375; J2250; J2270; J7040; Q9967; 97110; 97530; 99285-25

== ENCOUNTER 2017-09-27 18:12 | Emergency (ER) | payer OTHER ==
[~2017-09-27] VITALS: Ht 162.6 cm; Wt 90.7 kg
[~2017-09-27 18:12] MED LIST: CLON0.5T PO; DOCU-109 PO; DULO20CA50 PO; GABA300C8 PO; GABA600T2 PO; MIRT7.5T8 PO; MORP30TA3 PO; POLY17PO5 PO; POTA10TA5 PO; RIVA1PAT22 TP; ROPI0.5T PO; ROPI1TAB2 PO; TRAM50TA PO; ZOLP12.54 PO
[2017-09-27] MEDS ORDERED: oxyCODONE/APAP 5/325 1 TAB TABLET PO ONE (18:30)
[2017-09-27] MEDS ORDERED: clonazePAM 1 MG TABLET PO ONE (18:45)
[2017-09-27 19:11] LABS: BASO % 0 % (0-3); EOS % 0 % (0-3); HEMOGLOBIN 13.7 g/dL (12.0-15.5); LYMPH # 1.1 x10^3/uL (1.0-4.8); LYMPH % 25 % (24-48); MEAN CORPUSCULAR HEMOGLOBIN 33 pg (25-35); MEAN CORPUSCULAR HGB CONC 34 g/dL (31-37); MEAN CORPUSCULAR VOLUME 96 fL (79-100); MONO # 0.2 x10^3/uL (0.0-1.1); MONO % 6 % (0-9); NEUT # 2.9 x10^3uL (1.8-7.7); NEUT % 69 % (31-73); PLATELET COUNT 166 x10^3/uL (140-400); RED BLOOD COUNT 4.16 x10^6/uL (3.50-5.40); RED CELL DISTRIBUTION WIDTH 14.3 % (11.5-14.5); WHITE BLOOD COUNT 4.2 x10^3/uL (4.0-11.0)
[2017-09-27 19:19] LABS: ALBUMIN 3.3 g/dL (3.4-5.0); ALBUMIN/GLOBULIN RATIO 0.8 (1.0-1.7); CALCIUM 9.2 mg/dL (8.5-10.1); CREATININE 1.3 mg/dL (0.6-1.0); GFR 39.6; TOTAL BILIRUBIN 0.6 mg/dL (0.2-1.0); TOTAL PROTEIN 7.7 g/dL (6.4-8.2)
--- NOTE | 2017-09-27 19:31 | ED.ADGEN ---
Past History Past Medical History: Anxiety, Dementia, Diabetes Past Surgical History: Cholecystectomy, Hysterectomy, Oophorectomy Alcohol Use: None Drug Use: None Adult General Chief Complaint Chief Complaint Back and leg pain HPI HPI Patient is a 77 year old female with h/o female with restless leg drip who presents with lower back pain and bilateral leg pain throughout today. Patient' s taken tramadol with limited relief. She is currently prescribed clonazepam and her crit. She has not had a Requip this evening. Patient contacted PCPs office who directed the patient to the emergency department. No recent falls or injuries. No motor weakness or loss of sensation. Patient does have history of dementia. Additional history obtained from the patient's spouse who is at bedside. Patient's PCP is Dr. Hansen. [] Review of Systems Review of Systems ROS as per HPI.] All other systems were reviewed and found to be within normal limits, except as documented in this note. Current Medications Current Medications Current Medications Medications (Trade) Dose Ordered Sig/Leola Start Time Stop Time Status Last Admin Dose Admin Clonazepam (KlonoPIN) 2 mg 1X ONCE 09/27/17 18:45 09/27/17 18:46 DC 09/27/17 18:44 2 MG Oxycodone/ Acetaminophen (Percocet 5/325) 1 tab 1X ONCE 09/27/17 18:30 09/27/17 18:31 DC 09/27/17 18:36 1 TAB Allergies Allergies Allergies Coded Allergies Type Severity Reaction Last Updated Verified No Known Drug Allergies 08/27/17 No Physical Exam Physical Exam Constitutional: Well developed, well nourished, anxious. [] HENT: Normocephalic, atraumatic, bilateral external ears normal, oropharynx moist, no oral exudates, nose normal. [] Eyes: PERRLA, EOMI, conjunctiva normal, no discharge. [] Neck: Normal range of motion, no tenderness. [] Cardiovascular:tachycardic no murmur. [] Lungs & Thorax: Bilateral breath sounds clear to auscultation [] Abdomen: Bowel sounds normal, soft, no tenderness. [] Skin: Warm, dry, no erythema. [] Back: No tenderness, diffuse low back pain. [] Extremities: No tenderness, negative Homans sign.[] Neurologic: Alert and orientedx1 , normal motor function, normal sensory function, no focal deficits noted. [] Psychologic: Affect normal, judgement normal, mood normal. [] Current Patient Data Vital Signs Vital Signs Date Time Temp Pulse Resp B/P (MAP) Pulse Ox O2 Delivery O2 Flow Rate FiO2 09/27/17 18:36 20 97 09/27/17 18:12 97.8 120 Room Air Lab Results Laboratory Tests Test 09/27/17 18:45 White Blood Count 4.2 x10^3/uL (4.0-11.0) Red Blood Count 4.16 x10^6/uL (3.50-5.40) Hemoglobin 13.7 g/dL (12.0-15.5) Hematocrit 40.0 % (36.0-47.0) Mean Corpuscular Volume 96 fL (79-100) Mean Corpuscular Hemoglobin 33 pg (25-35) Mean Corpuscular Hemoglobin Concent 34 g/dL (31-37) Red Cell Distribution Width 14.3 % (11.5-14.5) Platelet Count 166 x10^3/uL (140-400) Neutrophils (%) (Auto) 69 % (31-73) Lymphocytes (%) (Auto) 25 % (24-48) Monocytes (%) (Auto) 6 % (0-9) Eosinophils (%) (Auto) 0 % (0-3) Basophils (%) (Auto) 0 % (0-3) Neutrophils # (Auto) 2.9 x10^3uL (1.8-7.7) Lymphocytes # (Auto) 1.1 x10^3/uL (1.0-4.8) Monocytes # (Auto) 0.2 x10^3/uL (0.0-1.1) Eosinophils # (Auto) 0.0 x10^3/uL (0.0-0.7) Basophils # (Auto) 0.0 x10^3/uL (0.0-0.2) Sodium Level 143 mmol/L (136-145) Potassium Level 4.0 mmol/L (3.5-5.1) Chloride Level 105 mmol/L (98-107) Carbon Dioxide Level 26 mmol/L (21-32) Anion Gap 12 (6-14) Blood Urea Nitrogen 14 mg/dL (7-20) Creatinine 1.3 mg/dL (0.6-1.0) H Estimated GFR (Cockcroft-Gault) 39.6 BUN/Creatinine Ratio 11 (6-20) Glucose Level 163 mg/dL (70-99) H Calcium Level 9.2 mg/dL (8.5-10.1) Total Bilirubin 0.6 mg/dL (0.2-1.0) Aspartate Amino Transferase (AST) 25 U/L (15-37) Alanine Aminotransferase (ALT) 15 U/L (14-59) Alkaline Phosphatase 172 U/L (46-116) H Total Protein 7.7 g/dL (6.4-8.2) Albumin 3.3 g/dL (3.4-5.0) L Albumin/Globulin Ratio 0.8 (1.0-1.7) L EKG EKG [] Radiology/Procedures Radiology/Procedures [] Course & Med Decision Making Course & Med Decision Making Pertinent Labs and Imaging studies reviewed. (See chart for details) [Patient given pain medication and anxiety medication with improved symptomatology. Recommend patient take her Requip upon returning home and follow -up with her PCP in the office tomorrow.] Final Impression Final Impression [1. Leg pain] Problems: Dragon Disclaimer Dragon Disclaimer This electronic medical record was generated, in whole or in part, using a voice recognition dictation system. NADEGE ASHTON DO Sep 27, 2017 19:31
[2017-09-27 19:40] VITALS: BP 98/86
== END 2017-09-27 19:45 | disposition home or self-care (01) ==
LOC: ER 18:12
DX: M79.605 Pain in left leg (principal); M79.604 Pain in right leg; M54.5 Low back pain; E11.9 Type 2 diabetes mellitus without complications; F41.9 Anxiety disorder, unspecified; F03.90 Unspecified dementia, unspecified severity, without behavioral disturbance, psychotic disturbance, mood disturbance, and anxiety
CPT/HCPCS: 36415; 80053; 85025; 99283; 99284